=== PATIENT | male | born 1975 | race Caucasian/White ===

== ENCOUNTER → 2018-09-13 | Outpatient (CLI) | payer OTHER ==
[~2018-09-13] VITALS: Ht 188 cm; Wt 89.4 kg
[~2018-09-13] MED LIST: AMITRIPTYLINE H10 M3 PO; IBUPROFEN 200200 M1 PO; MOBIC15 MG PO; TYLENOL325 MG PO
--- NOTE | ~2018-09-13 | HPC ---
[facility] [address] [place] [address] PAIN MANAGEMENT CONSULTATION Name: MILI SKINNER Room #: REG NEISHA HerreraAlaynaFatimahAlayna#: [id number] Admission: 09/13/18 ������������������ Attend Phys: Kiko Alanis MD Discharge: ������������������ Date of : 77 Report #: [id number] THIS REPORT FOR: //name// CC: Nam Alanis DATE OF SERVICE: 09/13/2018 CHIEF COMPLAINT: Headache pain. HISTORY: The patient is a 42-year-old gentleman who has been referred to the Pain Clinic. He has been experiencing pain in the left and right occipital area. This has been problematic for greater than 2 weeks. He states that he has and does workout 6 days a week. He was working toward increasing his pushups to 100 pushups per day. He states that he had accomplished 79 pushups. He was trying to do 80. He struggled and pushed mildly. He then noted some pain and discomfort in his neck and occipital area. He had a headache thereafter. He noted some stiffness in his neck. He feels like it was muscular in nature. No numbness or tingling down into his hands or fingers. He notes that he has tried [id number] nonsteroidal anti-inflammatory medications. He was also provided with a migraine headache medication. He did not notice any significant improvement with that. Imitrex did not seem to change the character of his discomfort. He has used Excedrin, feels that that might have had provided some benefit because of the caffeine involved in it. He notes his pain is worse with stress. It does improve somewhat with use of ibuprofen, caffeine as well as heat. He describes it as continuous, aching, throbbing, pounding, and tender. He rates it as a 5/10 today. When the pain is present, it starts at the base of his neck, can radiate up the lateral sides of his temples. He does note some discomfort in the area of the frontal portion of his head. He notes pain and discomfort in the neck muscles. ALLERGIES: No known drug allergies. CURRENT MEDICATIONS: Tylenol 325s q. six hours p.r.n., and ibuprofen 200 mg, 400 mg. PAST MEDICAL HISTORY: Unremarkable. PAST SURGICAL HISTORY: Right rotator cuff repair in 2005. 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 REVIEW OF SYSTEMS: Generally good health. Headaches, otherwise unremarkable. LABORATORY DATA: No new laboratory values are available at the time of the interview. [address] [address] PAIN MANAGEMENT CONSULTATION Name: MILI SKINNER Room #: REG [facility]#: [id number] Admission: 09/13/18 ������������������ Attend Phys: Kiko Alanis MD Discharge: ������������������ Date of : 77 Report #: [id number] PAIN CLINIC ASSESSMENT/PQRS: 1. The patient does not have a history of osteoarthritis. He is not being treated for rheumatoid arthritis. 2. Height 6 feet 2 inches, weight 197 pounds, BMI is 25.2. 3. Vital Signs: Blood pressure 116/85, pulse is 56, respiratory rate 16, room air saturation 100%. 4. Pain intensity: 5/10. 5. Fall history: The patient has not fallen in the last 3 months. 6. Blood thinner: The patient is not on a blood thinning medication. 7. Hypertension: The patient is not being treated for hypertension. 8. Opioids greater than 6 weeks: The patient is not on an opioid regimen. 9. Risk assessment tool for opioids: Low. 10. Functional assessment tool: 42/70. 11. Recreational drug use: The patient denies use of recreational drugs. 12. Tobacco: The patient has never smoked. 13. Alcohol: The patient drinks 1-2 alcoholic beverages weekly. PHYSICAL EXAMINATION: GENERAL: The patient is a well-developed, well-nourished white male. He appears his stated age. He is alert and oriented x 3. His affect is appropriate. Speech is fluent. HEENT: Normocephalic, atraumatic. Extraocular eye muscles intact. Sclerae nonicteric. Mucous membranes are moist. NECK: Without adenopathy. The patient has pain and discomfort in the area of the semispinalis capitis, right and left. This is on the right and left side. Palpation of the left and right temporal area notes some tenderness and discomfort in this area. The patient has some perception of discomfort behind his right eye. He has some pain and discomfort in the frontal area of his forehead. The patient does not have numbness or tingling radiating down into his arms. Good range of motion in the left and right arm. LUNGS: Clear to auscultation. HEART: Regular rate. ABDOMEN: Nontender. Bowel sounds present. MUSCULOSKELETAL: Lower extremity muscle strength is judged to be 5/5 for the major muscle groups in lower extremity. The patient is without stenosis, kyphosis, or lordosis. Deep tendon reflexes +1 at the knees. The patient is able to rise to his toes and heels. IMPRESSION: Myofascial pain/myalgia, left and right neck after muscle strain while doing pushups. RECOMMENDATIONS: We discussed treatment options with the patient. At this juncture, I think it would be reasonable for the patient to try amitriptyline 10 mg at bedtime. He can increase this to 20 mg at night. He states that he is awakened about 01:00-02:00 hours each morning. This is secondary to increased [facility] [address] [place] [address] PAIN MANAGEMENT CONSULTATION Name: MILI SKINNER Room #: REG [facility].#: [id number] Admission: 09/13/18 ������������������ Attend Phys: Kiko Alanis MD Discharge: ������������������ Date of : 77 Report #: [id number] headache pain and neck pain. We will also have the patient try meloxicam 15 mg one p.o. daily. I think this might be more efficacious than the ibuprofen 200 mg which he has to take on multiple occasions. He will monitor his GI tract. If he notes any problems with bleeding or upset stomach, he will then stop this medication. If he has any problems with the amitriptyline with hangover, he will stop taking this medication as well. He will call us if he has any concerns. I think to proceed with trigger point injections to the left and right neck area would be efficacious. The patient agrees. A model was used to indicate the area of probable pathology and the reason associated with this. He would like to proceed with this treatment course. We have contacted his insurance carrier. They have granted him the ability to undergo trigger point injections to the areas of myalgia. PROCEDURE NOTE: The patient was taken to the procedure area. He was then placed in the prone position. His neck was sterilely prepped with a chlorhexidine solution and allowed to dry. A trigger point was noted in the left neck area near the semispinalis capitis. Aspiration was negative. A 25-gauge needle had then been placed in this area. A total of 40 mg triamcinolone and 8 mL of 0.5% bupivacaine was injected. The left side was treated in a similar fashion. A total of 40 mg triamcinolone and 8 mL of 0.5% bupivacaine was injected in the left semispinalis capitis area of the patient. The patient remained in the Pain Clinic for an appropriate amount of time. At the time of discharge, his pain decreased to zero. He will call us if he has any concerns. We would like to thank you for letting us participate in his care. We hope he continues to improve. ��������������������������������������������� ���������������������������������������� By: ��������������������������������������������� [id number] Kiko Alanis MD /genoveva
[2018-09-13 09:59] VITALS: BP 116/83
--- NOTE | 2018-09-13 10:26 | NUR ---
Pain Clinic Assessment: 1. History of Osteoarthritis: Not Applicable History of Rheumatoid Arthritis: Not Applicable 2. Height: 6 ft. 2 in. 188.0 cm. Weight: 197.0 lb. oz. 89.359 kg. Patient's BMI: 25.3 3. Vital Signs: BP: 116/83 Pulse: 56 Resp: 16 Temp: 02 Sat: 100 ECG Mon: 4. Pain Intensity: 5 5. Fall Risk: Dizziness: N Needs help standing or walking: N Fallen in the last 3 months: N Fall risk comments: 6. Patient on Blood Thinner: None 7. History of Hypertension: N 8. Opioid Therapy greater than 6 weeks: N Opiate Contract Signed: 9. Risk Assessment Tool Provided: 10. Functional Assessment Tool: 11. Recreational Drug Use: Never Drug Type: Tobacco Use: Never Smoker Tobacco Type: Amount or Packs/day: How Many Years: Alcohol Use: Yes Frequency: Weekly Quant: 1-2
== END | disposition home or self-care (01) ==
LOC: PAIN 06:56
DX: M79.18 Myalgia, other site (principal); Z98.890 Other specified postprocedural states; Z79.899 Other long term (current) drug therapy